=== PATIENT | male | born 2000 | race Hispanic/Latino ===

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

== ENCOUNTER 2021-09-06 15:30 | Outpatient (CLI) | payer BC, SELFPAY | END 2021-09-06 23:59 | disposition short-term general hospital (02) | LOC: IMMUN 09-13 15:30 | PROVIDERS: Visit Provider Family Medicine | DX: Z23 Encounter for immunization (principal) ==

== ENCOUNTER → 2023-03-23 | Outpatient (CLI) | payer BC, SELFPAY | END | disposition home or self-care (01) | PROVIDERS: Referring Provider Physician Assistant Medical; Visit Provider Physician Assistant Medical | DX: I49.9 Cardiac arrhythmia, unspecified (principal) | CPT/HCPCS: 93225; 93226 ==

== ENCOUNTER → 2023-03-26 | Outpatient (CLI) | payer BC, SELFPAY ==
--- NOTE | 2023-03-26 09:43 | ECHOD_ITS ---
Reason For Study: CARDIAC ARRYTHMIA Procedure This was a 2D Doppler, Color Flow transthoracic echocardiogram. Exam performed in department. Left Ventricle Normal LV size. Apical false tendon noted. Left ventricular systolic function is normal. The estimated ejection fraction is 60 %. Normal diastololic function. No regional wall motion abnormalities noted. Right Ventricle Normal RV size. Normal systolic function. Atria The left and right atria are normal. Mitral Valve The mitral valve is structurally normal. No prolapse or stenosis seen. Mild (1+) mitral valve insufficiency. Tricuspid Valve Normal tricuspid valve. Trivial tricuspid valve insufficiency. Right ventricular systolic pressure estimated to be 15 mmHg. Aortic Valve Trisinus/trileaflet aortic valve. Pulmonic Valve Normal pulmonic valve. Trivial pulmonic valve insufficiency. Great Vessels Normal aortic root. Pericardium/Pleural No pericardial effusion. MMode/2D Measurements & Calculations LVIDd: 5.4 cm IVSd: 1.0 cm Ao root diam: 2.9 cm LVIDs: 4.0 cm LVPWd: 1.1 cm RVDd: 3.1 cm FS: 25.3 % LAV(MOD-bp): 47.0 ml LVAd ap4: 31.5 cm2 SV(MOD-sp4): 61.2 ml LAV(MOD-bp) Indexed: 23.1 ml/m2 LVLd ap4: 8.0 cm LAV(MOD-sp2): 69.7 ml EDV(MOD-sp4): 102.1 ml LAV(MOD-sp4): 29.7 ml EDV(sp4-el): 105.2 ml LVAs ap4: 18.2 cm2 LVLs ap4: 6.8 cm ESV(MOD-sp4): 40.8 ml ESV(sp4-el): 41.1 ml EF(MOD-sp4): 60.0 % EF(sp4-el): 61.0 % SV(sp4-el): 64.2 ml LA A4 area: 13.5 cm2 LA dimension(2D): 3.2 cm RA A4 area: 15.6 cm2 TAPSE: 1.9 cm Time Measurements MV dec time: 0.23 sec Doppler Measurements & Calculations MV E max taras: 69.7 cm/sec Lat Peak E' Taras: 18.9 cm/sec Med Peak E' Taras: 10.3 cm/sec MV A max taras: 41.7 cm/sec E/E' lat: 3.7 E/E' med: 6.8 MV E/A: 1.7 MV V2 max: 77.7 cm/sec Ao V2 max: 113.4 cm/sec MV max P.4 mmHg MV dec slope: 302.8 cm/sec2 Ao max P.1 mmHg MV V2 mean: 51.7 cm/sec Ao V2 mean: 77.9 cm/sec MV mean P.2 mmHg Ao mean P.8 mmHg MV V2 VTI: 26.8 cm Ao V2 VTI: 25.0 cm AV (velocity ratio): 0.87 LV V1 max: 98.1 cm/sec PA V2 max: 101.9 cm/sec TR max taras: 175.9 cm/sec LV V1 max P.9 mmHg PA V2 mean: 71.9 cm/sec TR max P.4 mmHg LV V1 mean P.1 mmHg LV V1 mean: 66.8 cm/sec LV V1 VTI: 21.7 cm ECHO/Echo Complete Interpretation Summary The estimated ejection fraction is 60 %. Trace to mild mitral valve insufficiency. Ordering Physician: Marcie Cronin Referring Physician: Marcie Cronin Performed By: Myrna Villa RCS
== END | disposition home or self-care (01) ==
PROVIDERS: Referring Provider Physician Assistant Medical; Visit Provider Physician Assistant Medical
DX: I49.9 Cardiac arrhythmia, unspecified (principal)
CPT/HCPCS: 93306